=== PATIENT | female | born 1975 | race Asian ===

== ENCOUNTER → 2016-11-06 | Outpatient (CLI) | payer OTHER ==
[~2016-11-06] MED LIST: OMNIPAQUE 350 MG/ML, 50 ML BOTTLE ONE
== END | disposition home or self-care (01) ==
LOC: RAD 08:33
PROVIDERS: ATTEND Obstetrics & Gynecology Maternal & Fetal Medicine
DX: N97.0 Female infertility associated with anovulation (principal)
CPT/HCPCS: 74740; Q9967

== ENCOUNTER 2018-04-01 16:15 | Outpatient (CLI) | payer OTHER ==
[~2018-04-01] VITALS: Ht 154.9 cm; Wt 81.8 kg
[2018-04-01] MEDS ORDERED: PREN1TAB60 PO (16:31)
[2018-04-01] MEDS ORDERED: LEVO25TA4 PO (16:31)
[2018-04-01 16:32] VITALS: BP 135/65
[2018-04-01 16:59] LABS: MICROSCOPIC INDICATED
[2018-04-01 17:11] LABS: TOTAL PROTEIN,URINE RANDOM 6 mg/dL (0-12)
[2018-04-01 17:15] LABS: CREATININE,URINE RANDOM < 13.00 mg/dL; PROTEIN/CREATININE RATIO,URINE 462 (0-200)
[2018-04-01 17:40] LABS: BASOPHILS # (AUTO) 0.01 x10^3/uL (0-0.1); BASOPHILS % (AUTO) 0 % (0-1); EOSINOPHILS # (AUTO) 0.24 x10^3/uL (0-0.4); EOSINOPHILS % (AUTO) 2 % (1-7); LYMPHOCYTES # (AUTO) 1.52 x10^3/uL (1-3.4); LYMPHOCYTES % (AUTO) 14 % (22-44); MD NO; MEAN CORPUSCULAR HEMOGLOBIN 30.1 pg (27.0-34.8); MEAN CORPUSCULAR HGB CONC 33.5 g/dL (32.4-35.8); MEAN CORPUSCULAR VOLUME 89.8 fL (80-100); MEAN PLATELET VOLUME 8.3 fL (7.4-10.4); MONOCYTES # (AUTO) 0.96 x10^3/uL (0.2-0.8); MONOCYTES % (AUTO) 9 % (2-9); NEUTROPHILS # (AUTO) 8.07 x10^3/uL (1.8-6.8); NEUTROPHILS % (AUTO) 75 % (42-75); PLATELET COUNT 285 x10^3/uL (130-400); RED BLOOD COUNT 3.92 x10^6/uL (3.82-5.3); RED CELL DISTRIBUTION WIDTH 15.1 % (9.6-15.2)
[2018-04-01 17:45] LABS: ALANINE AMINOTRANSFERASE 28 U/L (12-78); ALBUMIN 2.5 g/dL (3.4-5.0); ANION GAP 7 mmol/L (5-15); CALCIUM 8.1 mg/dL (8.5-10.1); CHLORIDE 110 mmol/L (98-107)
[2018-04-01 17:48] LABS: ALKALINE PHOSPHATASE 82 U/L (45-117); BILIRUBIN,TOTAL 0.2 mg/dL (0.2-1.0); TOTAL PROTEIN 6.6 g/dL (6.4-8.2)
== END 2018-04-01 18:20 | disposition home or self-care (01) ==
LOC: LDOP 16:15
PROVIDERS: ATTEND Obstetrics & Gynecology Maternal & Fetal Medicine
DX: O13.3 Gestational [pregnancy-induced] hypertension without significant proteinuria, third trimester (principal); Z3A.36 36 weeks gestation of pregnancy
CPT/HCPCS: 36415; 59025; 80053; 81001; 82570; 84156; 84550; 85025; 99211; G0463

== ENCOUNTER 2018-04-25 00:41 | Inpatient (IN) | payer OTHER ==
[~2018-04-25] VITALS: Ht 154.9 cm; Wt 84.0 kg
[~2018-04-25 00:41] MED LIST changes: +LEVO25TA4 PO; -OMNIPAQUE 350 MG/ML, 50 ML BOTTLE ONE; +PREN1TAB60 PO
[2018-04-25 00:55] VITALS: BP 160/100
[2018-04-25] MEDS: LACTATED RINGERS 1,000 ML IV SCH ×5 (01:22→23:10)
[2018-04-25] MEDS ORDERED: OXYTOCIN 30U/ 0.9% NaCL 500ML 500 ML IV PRN (01:22)
[2018-04-25] MEDS ORDERED: D5%-LACTATED RINGERS 1,000 ML IV SCH (01:22)
[2018-04-25] MEDS ORDERED: OXYTOCIN 30U/ 0.9% NaCL 500ML 500 ML IV ONE (01:22)
[2018-04-25] MEDS ORDERED: NEWBORN KIT ONE (01:23)
[2018-04-25] MEDS ORDERED: OXYTOCIN 30U/ 0.9% NaCL 500ML 0 ML ONE (01:23)
[2018-04-25] MEDS ORDERED: FENTANYL PF 100 MCG/2ML IVPush PRN (01:30)
[2018-04-25] MEDS ORDERED: ALUMINUM/MAG/SIMETHICONE 30 ML UDC PO PRN (01:30)
[2018-04-25] MEDS ORDERED: ONDANSETRON 2MG/ML, 2ML IVPush PRN ×3 (01:30→23:30)
[2018-04-25] MEDS ORDERED: SODIUM CITRATE/CITRIC ACID 30 ML UDC PO PRN (01:30)
[2018-04-25] MEDS ORDERED: METOCLOPRAMIDE 5 MG/ML, 2ML IVPush PRN (01:30)
[2018-04-25] MEDS ORDERED: PENICILLIN GK 5,000,000 UNITS in DEXTROSE 5% 100 ML IVPB ONE (01:30)
[2018-04-25] MEDS ORDERED: TERBUTALINE 1 MG/ML, 1ML SQ PRN (01:30)
[2018-04-25] MEDS ORDERED: FENTANYL PF 100 MCG/2ML IV PRN (01:30)
[2018-04-25] MEDS ORDERED: TERBUTALINE 1 MG/ML, 1ML IVPush PRN ×2 (01:30)
[2018-04-25] MEDS ORDERED: CALCIUM CARBONATE 500 MG TAB.CHEW PO PRN ×2 (01:30→23:30)
[2018-04-25 01:46] LABS: BASOPHILS # (AUTO) 0.05 x10^3/uL (0-0.1); BASOPHILS % (AUTO) 0 % (0-1); EOSINOPHILS % (AUTO) 2 % (1-7); LYMPHOCYTES # (AUTO) 1.61 x10^3/uL (1-3.4); LYMPHOCYTES % (AUTO) 13 % (22-44); MD NO; MEAN CORPUSCULAR HEMOGLOBIN 29.7 pg (27.0-34.8); MEAN CORPUSCULAR HGB CONC 33.1 g/dL (32.4-35.8); MEAN CORPUSCULAR VOLUME 89.5 fL (80-100); MEAN PLATELET VOLUME 8.2 fL (7.4-10.4); MONOCYTES # (AUTO) 0.91 x10^3/uL (0.2-0.8); MONOCYTES % (AUTO) 7 % (2-9); NEUTROPHILS # (AUTO) 9.67 x10^3/uL (1.8-6.8); NEUTROPHILS % (AUTO) 78 % (42-75); PLATELET COUNT 287 x10^3/uL (130-400); RED BLOOD COUNT 4.09 x10^6/uL (3.82-5.3); RED CELL DISTRIBUTION WIDTH 15.2 % (9.6-15.2)
[2018-04-25 01:58] LABS: ALANINE AMINOTRANSFERASE 22 U/L (12-78); ALBUMIN 2.4 g/dL (3.4-5.0); ANION GAP 9 mmol/L (5-15); BILIRUBIN, DIRECT < 0.1 mg/dL (0.1-0.2); CHLORIDE 108 mmol/L (98-107)
[2018-04-25 02:00] LABS: ALKALINE PHOSPHATASE 90 U/L (45-117); BILIRUBIN,TOTAL 0.2 mg/dL (0.2-1.0); TOTAL PROTEIN 6.6 g/dL (6.4-8.2)
[2018-04-25] MEDS ORDERED: FENTANYL PF 100 MCG/2ML ONE (03:20)
[2018-04-25] MEDS ORDERED: FENTANYL/BUPIV./NS/PF 250 ML EPIDCONT SCH ×2 (04:36→06:10)
[2018-04-25] MEDS: PENICILLIN GK 2,500,000 UNITS in DEXTROSE 5% 100 ML IVPB SCH ×4 (04:57→18:14)
[2018-04-25] MEDS ORDERED: BUPIVACAINE 0.25% ONE (05:29)
[2018-04-25] MEDS ORDERED: NALOXONE 0.4 MG/ML, 1ML IVPush PRN ×2 (06:30→23:30)
[2018-04-25] MEDS ORDERED: EPHEDRINE 50 MG/ML, 1ML IVPush PRN ×2 (06:30→23:30)
[2018-04-25] MEDS ORDERED: LACTATED RINGERS 1,000 ML IVBOLUS PRN (06:30)
[2018-04-25] MEDS ORDERED: DIPHENHYDRAMINE 50 MG/ML, 1ML IVPush PRN ×2 (06:30→23:30)
[2018-04-25 06:48] LABS: MICROSCOPIC NOT IND
[2018-04-25] MEDS ORDERED: ACETAMINOPHEN 500 MG TABLET ONE (11:35)
[2018-04-25] MEDS ORDERED: LACTATED RINGERS 1,000 ML INTUTE PRN (12:00)
[2018-04-25] MEDS ORDERED: ACETAMINOPHEN 500 MG TABLET PO PRN (12:00)
[2018-04-25] MEDS ORDERED: LACTATED RINGERS 1,000 ML INTUTE SCH (12:00)
[2018-04-25] MEDS ORDERED: TERBUTALINE 1 MG/ML, 1ML ONE (18:23)
[2018-04-25 19:07] VITALS: BP 135/77
[2018-04-25] MEDS ORDERED: METOCLOPRAMIDE 5 MG/ML, 2ML ONE (21:42)
[2018-04-25] MEDS ORDERED: SODIUM CITRATE/CITRIC ACID 30 ML UDC ONE (21:42)
[2018-04-25] MEDS ORDERED: morphine SULFATE/PF 0.5 MG/ML, 10ML ONE (22:02)
[2018-04-25] MEDS ORDERED: DEXAMETHASONE 4 MG/ML, 1ML ONE (22:03)
[2018-04-25] MEDS ORDERED: ONDANSETRON 2MG/ML, 2ML ONE (22:03)
[2018-04-25] MEDS ORDERED: ROPIvacaine/PF 0.2%, 20 ML ONE (22:03)
[2018-04-25] MEDS ORDERED: OXYTOCIN 10 UNITS/ML, 1ML ONE ×2 (22:03→22:21)
[2018-04-25] MEDS ORDERED: CEFAZOLIN 1,000 MG ONE (22:03)
[2018-04-25] MEDS ORDERED: KETOROLAC 30 MG/1 ML ONE (22:03)
[2018-04-25] MEDS ORDERED: SODIUM CHLORIDE 0.9% PF 10ML ONE (22:03)
[2018-04-25] MEDS: KETOROLAC 30 MG/1 ML IV SCH (23:00)
[2018-04-25] MEDS ORDERED: CARBOPROST TROMETHAMINE 250 MCG/ML, 1ML IM PRN (23:30)
[2018-04-25] MEDS ORDERED: METOCLOPRAMIDE 5 MG/ML, 2ML IV PRN (23:30)
[2018-04-25] MEDS ORDERED: MEPERIDINE/PF 25MG/0.5ML IVPush PRN (23:30)
[2018-04-25] MEDS ORDERED: PROMETHAZINE 25 MG/ML, 1ML IV PRN (23:30)
[2018-04-25] MEDS ORDERED: morphine SULFATE 10 MG/ML, 1ML IVPush PRN ×2 (23:30)
[2018-04-25] MEDS ORDERED: MEPERIDINE/PF 100 MG/ML IVPush PRN (23:30)
[2018-04-25] MEDS ORDERED: ONDANSETRON 2MG/ML, 2ML IV PRN (23:30)
[2018-04-25] MEDS ORDERED: KETOROLAC 30 MG/1 ML IVPush PRN (23:30)
[2018-04-25] MEDS ORDERED: MEPERIDINE/PF 50 MG/ML IVPush PRN (23:30)
[2018-04-25] MEDS ORDERED: MISOPROSTOL 200 MCG TABLET PR PRN (23:30)
[2018-04-25] MEDS ORDERED: MORPHINE SULFATE 4 MG/ML, 1ML IVPush PRN (23:30)
[2018-04-25] MEDS ORDERED: MIDAZOLAM 1 MG/ML, 2ML IV PRN (23:30)
[2018-04-25] MEDS ORDERED: DO NOT GIVE XX SCH (23:30)
[2018-04-25] MEDS ORDERED: OXYcodone/APAP 5/325MG TABLET PO PRN ×2 (23:30)
[2018-04-26] VITALS (7 sets, daily range): BP systolic 103–121; BP diastolic 64–74
[2018-04-26] MEDS: OXYTOCIN 30U/ 0.9% NaCL 500ML 500 ML IV SCH ×3 (00:10→17:01)
[2018-04-26] MEDS: LACTATED RINGERS 1,000 ML IV SCH ×6 (00:10→23:10)
[2018-04-26] MEDS: KETOROLAC 30 MG/1 ML IV SCH ×4 (05:17→23:30)
[2018-04-26] MEDS: SIMETHICONE 80 MG CHEW TAB PO PRN ×2 (05:29→17:52)
[2018-04-26 05:53] LABS: MEAN CORPUSCULAR HEMOGLOBIN 30.5 pg (27.0-34.8); MEAN CORPUSCULAR HGB CONC 33.6 g/dL (32.4-35.8); MEAN CORPUSCULAR VOLUME 90.8 fL (80-100); PLATELET COUNT 247 x10^3/uL (130-400); RED BLOOD COUNT 3.77 x10^6/uL (3.82-5.3); RED CELL DISTRIBUTION WIDTH 15.4 % (9.6-15.2)
[2018-04-26] MEDS ORDERED: LEVOTHYROXINE 25 MCG TABLET PO SCH (06:00)
[2018-04-26] MEDS ORDERED: LEVOTHYROXINE 50 MCG TABLET PO SCH (06:00)
[2018-04-26 06:27] LABS: MD YES
[2018-04-26 06:28] LABS: BAND#(MANUAL) 1.75 x10^3/uL; BANDS%(MANUAL) 8 % (0-7); LYMPH#(MANUAL) 1.53 x10^3/uL (1-3.4); LYMPHS% (MANUAL) 7 % (22-44); MONOS#(MANUAL) 0.44 x10^3/uL (0.3-2.7); MONOS% (MANUAL) 2 % (2-9); SEG#(MANUAL) 18.18 x10^3/uL (1.8-6.8); SEGS% (MANUAL) 83 % (42-75)
[2018-04-26 06:29] LABS: <PLATELET ESTIMATE> ADEQUATE; <PLT MORPHOLOGY> NORMAL PLT MORPH; POLYCHROMASIA 1+
[2018-04-26] MEDS: DOCUSATE 100 MG CAPSULE PO PRN ×2 (07:29→23:56)
[2018-04-26] MEDS: PRENATAL VIT/IRON/FA 1 EACH TABLET PO SCH (09:00)
[2018-04-26] MEDS: IBUPROFEN 600 MG TABLET PO PRN ×3 (12:16→23:56)
[2018-04-26] MEDS: OXYcodone/APAP 5/325MG TABLET PO PRN ×3 (12:16→23:57)
[2018-04-27] MEDS: OXYcodone/APAP 5/325MG TABLET PO PRN ×4 (04:20→22:17)
[2018-04-27] MEDS: LACTATED RINGERS 1,000 ML IV SCH ×5 (05:10→23:10)
[2018-04-27] MEDS: OXYTOCIN 30U/ 0.9% NaCL 500ML 500 ML IV SCH ×2 (05:10→15:10)
[2018-04-27] MEDS: LEVOTHYROXINE 25 MCG TABLET PO SCH (06:57)
[2018-04-27 08:00] VITALS: BP 119/78
[2018-04-27] MEDS: DOCUSATE 100 MG CAPSULE PO PRN (08:18)
[2018-04-27] MEDS: IBUPROFEN 600 MG TABLET PO PRN ×3 (08:18→22:16)
[2018-04-27] MEDS: PRENATAL VIT/IRON/FA 1 EACH TABLET PO SCH (08:19)
[2018-04-27 19:30] VITALS: BP 155/90
[2018-04-27 21:00] VITALS: BP 128/75
[2018-04-27] MEDS: SIMETHICONE 80 MG CHEW TAB PO PRN (22:17)
[2018-04-28 01:00] VITALS: BP 130/74
[2018-04-28] MEDS: LACTATED RINGERS 1,000 ML IV SCH ×3 (01:10→11:10)
[2018-04-28] MEDS: OXYTOCIN 30U/ 0.9% NaCL 500ML 500 ML IV SCH ×2 (01:10→11:10)
[2018-04-28 04:00] VITALS: BP 149/84
[2018-04-28] MEDS: OXYcodone/APAP 5/325MG TABLET PO PRN ×2 (04:38→11:19)
[2018-04-28] MEDS: IBUPROFEN 600 MG TABLET PO PRN ×2 (04:39→11:19)
[2018-04-28] MEDS: SIMETHICONE 80 MG CHEW TAB PO PRN (04:39)
[2018-04-28] MEDS: DOCUSATE 100 MG CAPSULE PO PRN (07:50)
[2018-04-28] MEDS: PRENATAL VIT/IRON/FA 1 EACH TABLET PO SCH (07:50)
[2018-04-28] MEDS: LEVOTHYROXINE 25 MCG TABLET PO SCH (07:50)
[2018-04-28] MEDS ORDERED: IBUP-1222 PO ×3 (10:48→10:51)
[2018-04-28] MEDS ORDERED: OXYC-302 PO (10:57)
== END 2018-04-28 12:40 | disposition home or self-care (01) | DRG 788 ==
LOC: LDOP 00:41 → LDIP 01:30 → 2NW 04-26 01:00
PROVIDERS: ADMIT Obstetrics & Gynecology Maternal & Fetal Medicine; ATTEND Obstetrics & Gynecology Maternal & Fetal Medicine
PROC: 10D00Z1 Extraction of Products of Conception, Low, Open Approach (ICD-10-PCS; principal; 2018-04-25)
DX: O62.1 Secondary uterine inertia (principal); O99.824 Streptococcus B carrier state complicating childbirth; Z3A.40 40 weeks gestation of pregnancy; Z37.0 Single live birth; O42.92 Full-term premature rupture of membranes, unspecified as to length of time between rupture and onset of labor; O32.2XX0 Maternal care for transverse and oblique lie, not applicable or unspecified; O09.523 Supervision of elderly multigravida, third trimester; O99.284 Endocrine, nutritional and metabolic diseases complicating childbirth; E03.9 Hypothyroidism, unspecified
CPT/HCPCS: 36415; J7121; 80053; 81003; 82248; 82570; 82803; 84156; 84550; 85025; 86850; 86900; G0378; J0690; J1100; J1885; J2274; J2405; J2540; J2795; J2590; J2765; J7120